=== PATIENT | male | born 1960 | race Two or more races ===

== ENCOUNTER 2017-07-14 01:33 | Inpatient (IN) | payer MEDICAID, OTHER ==
[~2017-07-14] VITALS: Ht 170.2 cm; Wt 56.6 kg
[2017-07-14 02:43] LABS: Basophils # (auto) 0.1 uL; Basophils % (auto) 0.7 % (0.0-2.0); Eosinophils # (auto) 0 uL; Eosinophils % (auto) 0.3 % (0.0-7.0); Hematocrit 26.6 % (41.0-53.0); Hemoglobin 8.6 g/dL (13.5-17.5); Lymphocytes # (auto) 1.5 uL; Lymphocytes % (auto) 19.7 % (10.0-50.0); Mean Corpuscular Hemoglobin 31.2 pg (28.0-32.0); Mean Corpuscular Hgb Conc. 32.3 g/dL (32.0-36.0); Mean Corpuscular Volume 96.5 fL (80.0-100.0); Monocytes # (auto) 0.3 uL; Monocytes % (auto) 3.5 % (0.0-12.0); Neutrophils # (auto) 5.7 uL; Neutrophils % (auto) 75.8 % (37.0-80.0); Nucleated Red Blood Cells % 0.1 %; Platelet Count (auto) 320 10^3/uL (140-450); Red Blood Cells 2.75 10^6/uL (4.5-5.90); Red Cell Distribution Width 18.2 % (11.8-14.3); White Blood Cell 7.5 10^3/uL (4.4-10.8)
[2017-07-14 02:46] LABS: Urine Bacteria NONE SEEN /hpf (None Seen); Urine Blood Negative /uL (Negative); Urine Mucus FEW (None Seen); Urine Specific Gravity 1.014 (1.001-1.035); Urine WBC 2 /hpf (0 - 3)
[2017-07-14 03:01] LABS: Alanine Aminotransferase 10 U/L (16-61); Albumin 2.4 g/dL (3.4-5.0); Anion Gap 10 (5-15); Aspartate Aminotransferase 23 U/L (15-37); BUN/Creatinine Ratio 14.3; Blood Urea Nitrogen 55 mg/dL (7-18); Calcium 10.4 mg/dL (8.5-10.1); Carbon Dioxide 18 mmol/L (21-32); Chloride 102 mmol/L (98-107); GFR African American 21 mL/min; GFR Non-African American 17 mL/min; Glucose 75 mg/dL (74-106); Magnesium 2.8 mg/dL (1.6-2.6); Sodium 130 mmol/L (136-145)
[2017-07-14 03:05] LABS: Alkaline Phosphatase 99 U/L (45-117); Bilirubin, Total 0.4 mg/dL (0.2-1.0)
[2017-07-14 03:24] LABS: Potassium 5.7 mmol/L (3.5-5.1)
[2017-07-14] MEDS ORDERED: InsuLIN REG 1unit/0.01ml Soln (100units/ml) IV ONE ×2 (04:00→04:15)
[2017-07-14] MEDS ORDERED: SODIUM BICARBONATE 8.4% INJ 50ML SYRINGE IV ONE (04:00)
[2017-07-14] MEDS ORDERED: CALCIUM GLUC 4.65meq/50ml D5AE 50 ML IV ONE (04:00)
[2017-07-14] MEDS ORDERED: SODIUM POLYSTYRENE SULF 15GM/60ML SUSP PO ONE (04:00)
[2017-07-14] MEDS ORDERED: DEXTROSE (50%) 50ML SYRG IV ONE (04:00)
[2017-07-14 04:17] LABS: Alcohol, Urine < 3.0 mg/dL (0-5); Amphetamine Screen, Urine NEGATIVE (NEGATIVE); Barbiturate Scree,Urine NEGATIVE (NEGATIVE); Benzodiazephine Screen, Urine NEGATIVE (NEGATIVE); Cannabinoid Screen, Urine NEGATIVE (NEGATIVE); Cocaine Screen, Urine NEGATIVE (NEGATIVE); Opiate Scree,Urine POSITIVE (NEGATIVE); Phencyclidine Screen, Urine NEGATIVE (NEGATIVE)
[2017-07-14] MEDS ORDERED: SODIUM CHLORIDE 0.9% 1,000 ML IV SCH (07:08)
[2017-07-14] MEDS ORDERED: NITROGLYCERIN 0.4 MG SL TAB SL PRN (07:15)
[2017-07-14] MEDS ORDERED: ACETAMINOPHEN 325 MG TAB PO PRN (07:15)
[2017-07-14] MEDS ORDERED: MORPHINE SULFATE 10 MG/ML INJ 1ML SDV IV PRN (07:15)
[2017-07-14] MEDS: PANTOPRAZOLE 40 MG TAB PO SCH (08:35)
[2017-07-14] MEDS: HEPARIN SODIUM (PORCINE) 5000 UNITS/ML 1ML VIAL SC SCH ×2 (08:35→22:42)
[2017-07-14] MEDS: ELVITEGRAVIR PO SCH ×2 (08:35→10:10)
[2017-07-14] MEDS: COBICISTAT PO SCH ×2 (08:35→10:10)
[2017-07-14] MEDS: EMTRICITABINE PO SCH ×2 (08:35→10:10)
[2017-07-14] MEDS: TENOFOVIR ALAFENAMIDE PO SCH ×2 (08:35→10:10)
[2017-07-14 08:47] VITALS: BP 111/71
[2017-07-14 09:16] VITALS: BP 123/51
[2017-07-14] MEDS ORDERED: SULFAMETHOX W/TRIMETH(800/160MG) DS TAB PO SCH (10:00)
[2017-07-14] MEDS: NYSTATIN (MOUTH-THROAT) 500,000 UNITS/5 ML SUSP MT SCH ×3 (11:47→22:42)
[2017-07-14] MEDS: SODIUM BICARBONATE 50ML VIAL 50 ML in D5W/SOD CHL 0.45% 1,000 ML IV SCH ×2 (11:47→22:00)
[2017-07-14 11:58] LABS: Protein, Urine 130.5 mg/dL (0.0-11.9)
[2017-07-14] MEDS ORDERED: SULF400T11 PO (14:26)
[2017-07-14] MEDS ORDERED: FLUC200T50 PO (14:26)
[2017-07-14] MEDS ORDERED: ETHA400T20 PO (14:26)
[2017-07-14] MEDS ORDERED: ELVI1TAB4 PO (14:28)
[2017-07-14 17:16] LABS: % Iron Saturation 33.6 % (20-55)
[2017-07-14] MEDS: HYDROcodone-ACET 5/325MG TAB PO PRN (20:44)
[2017-07-14 22:09] VITALS: BP 125/72
[2017-07-14] MEDS: ONDANSETRON HCL 4 MG/2 ML VIAL IV PRN (22:59)
[2017-07-15 05:06] LABS: RPR Non Reactive (Non Reactive)
[2017-07-15 06:01] VITALS: BP 132/84
[2017-07-15] MEDS: NYSTATIN (MOUTH-THROAT) 500,000 UNITS/5 ML SUSP MT SCH ×4 (06:25→22:43)
[2017-07-15 07:42] LABS: Basophils # (auto) 0 uL; Eosinophils # (auto) 0 uL; Hematocrit 24.4 % (41.0-53.0); Lymphocytes # (auto) 1.2 uL; Mean Corpuscular Hemoglobin 31.4 pg (28.0-32.0); Monocytes # (auto) 0.3 uL; Neutrophils # (auto) 3.1 uL; Red Blood Cells 2.56 10^6/uL (4.5-5.90)
[2017-07-15 07:44] LABS: Basophils % (auto) 0.6 % (0.0-2.0); Eosinophils % (auto) 0.3 % (0.0-7.0); Lymphocytes % (auto) 25.4 % (10.0-50.0); Mean Corpuscular Hgb Conc. 32.9 g/dL (32.0-36.0); Mean Corpuscular Volume 95.6 fL (80.0-100.0); Monocytes % (auto) 7.5 % (0.0-12.0); Neutrophils % (auto) 66.2 % (37.0-80.0); Platelet Count (auto) 302 10^3/uL (140-450); Red Cell Distribution Width 18.1 % (11.8-14.3); White Blood Cell 4.6 10^3/uL (4.4-10.8)
[2017-07-15 08:04] LABS: Alanine Aminotransferase 7 U/L (16-61); Albumin 2.1 g/dL (3.4-5.0); Alkaline Phosphatase 83 U/L (45-117); Anion Gap 10 (5-15); Aspartate Aminotransferase 14 U/L (15-37); BUN/Creatinine Ratio 15.2; Bilirubin, Total 0.2 mg/dL (0.2-1.0); Blood Urea Nitrogen 48 mg/dL (7-18); Calcium 9.3 mg/dL (8.5-10.1); Carbon Dioxide 24 mmol/L (21-32); Chloride 104 mmol/L (98-107); GFR African American 26 mL/min; GFR Non-African American 22 mL/min; Glucose 85 mg/dL (74-106); Potassium 4.3 mmol/L (3.5-5.1); Sodium 138 mmol/L (136-145); Total Protein 7.9 g/dL (6.4-8.2)
[2017-07-15] MEDS: SODIUM BICARBONATE 50ML VIAL 50 ML in D5W/SOD CHL 0.45% 1,000 ML IV SCH ×2 (08:30→19:24)
[2017-07-15 08:46] VITALS: BP 101/68
[2017-07-15] MEDS: PANTOPRAZOLE 40 MG TAB PO SCH (10:44)
[2017-07-15] MEDS: HEPARIN SODIUM (PORCINE) 5000 UNITS/ML 1ML VIAL SC SCH ×2 (10:47→22:45)
[2017-07-15] MEDS: EMTRICITABINE PO SCH (10:52)
[2017-07-15] MEDS: COBICISTAT PO SCH (10:52)
[2017-07-15] MEDS: TENOFOVIR ALAFENAMIDE PO SCH (10:52)
[2017-07-15] MEDS: ELVITEGRAVIR PO SCH (10:52)
[2017-07-15 13:12] VITALS: BP 94/60
[2017-07-15] MEDS ORDERED: EPOETIN ALFA 2,000 UNIT/1 ML VIAL IV ONE (16:45)
[2017-07-15 17:39] VITALS: BP 113/74
[2017-07-15] MEDS: BOOST PLUS 8 ounce PO SCH (18:07)
[2017-07-15 21:34] VITALS: BP 118/71
[2017-07-15] MEDS: TEMAZEPAM 15 MG CAP PO PRN (22:43)
[2017-07-16 04:41] VITALS: BP 112/75
[2017-07-16] MEDS: SODIUM BICARBONATE 50ML VIAL 50 ML in D5W/SOD CHL 0.45% 1,000 ML IV SCH ×2 (05:43→16:00)
[2017-07-16] MEDS: NYSTATIN (MOUTH-THROAT) 500,000 UNITS/5 ML SUSP MT SCH ×4 (06:58→22:04)
[2017-07-16 07:06] LABS: BUN/Creatinine Ratio 14.6; Potassium 3.8 mmol/L (3.5-5.1)
[2017-07-16 09:00] VITALS: BP 114/74
[2017-07-16] MEDS: EMTRICITABINE PO SCH (10:50)
[2017-07-16] MEDS: COBICISTAT PO SCH (10:50)
[2017-07-16] MEDS: PANTOPRAZOLE 40 MG TAB PO SCH (10:50)
[2017-07-16] MEDS: TENOFOVIR ALAFENAMIDE PO SCH (10:50)
[2017-07-16] MEDS: ELVITEGRAVIR PO SCH (10:50)
[2017-07-16] MEDS: HEPARIN SODIUM (PORCINE) 5000 UNITS/ML 1ML VIAL SC SCH ×2 (10:56→22:05)
[2017-07-16] MEDS: BOOST PLUS 8 ounce PO SCH ×3 (11:57→19:01)
[2017-07-16 13:00] VITALS: BP 116/75
[2017-07-16 17:00] VITALS: BP 123/76
[2017-07-16] MEDS: HYDROcodone-ACET 5/325MG TAB PO PRN (17:06)
[2017-07-16 22:00] VITALS: BP 119/70
[2017-07-17] MEDS: SODIUM BICARBONATE 50ML VIAL 50 ML in D5W/SOD CHL 0.45% 1,000 ML IV SCH (02:30)
[2017-07-17 05:00] VITALS: BP 130/75
[2017-07-17] MEDS: ONDANSETRON HCL 4 MG/2 ML VIAL IV PRN (05:23)
[2017-07-17] MEDS: NYSTATIN (MOUTH-THROAT) 500,000 UNITS/5 ML SUSP MT SCH ×4 (05:23→21:36)
[2017-07-17 06:08] LABS: Hemoglobin 7.5 g/dL (13.5-17.5)
[2017-07-17 06:10] LABS: Mean Corpuscular Hemoglobin 31.2 pg (28.0-32.0); Mean Corpuscular Hgb Conc. 32.6 g/dL (32.0-36.0); Mean Corpuscular Volume 95.6 fL (80.0-100.0); Platelet Count (auto) 243 10^3/uL (140-450); Red Blood Cells 2.41 10^6/uL (4.5-5.90); Red Cell Distribution Width 18.2 % (11.8-14.3); White Blood Cell 3.3 10^3/uL (4.4-10.8)
[2017-07-17 06:16] LABS: Basophils % (manual) 0 (0.0-2.0); Blast Cells 0; Promyelocytes % 0; Reactive Lymphocytes 0
[2017-07-17 06:30] LABS: BUN/Creatinine Ratio 14.9; Potassium 3.7 mmol/L (3.5-5.1)
[2017-07-17 06:37] LABS: Band Neutrophils % (manual) 1; Eosinophils % (manual) 1 (0-7); Lymphocytes % (manual) 49 (10.0-50.0); Metamyelocytes % 1; Monocytes % (manual) 12 (0-12); Myelocytes % 1
[2017-07-17 09:10] VITALS: BP 118/75
[2017-07-17] MEDS: HEPARIN SODIUM (PORCINE) 5000 UNITS/ML 1ML VIAL SC SCH ×2 (10:00→21:36)
[2017-07-17 10:19] LABS: Folate (Folic Acid) 6.89 ng/mL (5.38-24)
[2017-07-17] MEDS: EMTRICITABINE PO SCH (10:24)
[2017-07-17] MEDS: BOOST PLUS 8 ounce PO SCH ×3 (10:24→18:00)
[2017-07-17] MEDS: PANTOPRAZOLE 40 MG TAB PO SCH (10:24)
[2017-07-17] MEDS: COBICISTAT PO SCH (10:24)
[2017-07-17] MEDS: TENOFOVIR ALAFENAMIDE PO SCH (10:24)
[2017-07-17] MEDS: ELVITEGRAVIR PO SCH (10:24)
[2017-07-17 10:35] LABS: Hepatitis B Surface Antigen Negative (Negative)
[2017-07-17 11:04] LABS: Hepatitis C Antibody Negative (Negative)
[2017-07-17] MEDS ORDERED: LORazepam 2MG/ML-1ML VIAL IV ONE (11:30)
[2017-07-17 12:22] VITALS: BP 116/74
[2017-07-17 12:23] VITALS: BP_SYST 116; BP_SYST 126; BP_DIAS 78; BP_DIAS 79
[2017-07-17] MEDS ORDERED: EPOETIN ALFA 4,000 UNIT/ML VL IV ONE (12:30)
[2017-07-17] MEDS: TEMAZEPAM 15 MG CAP PO PRN (21:36)
[2017-07-17 22:00] VITALS: BP 123/78
[2017-07-18] VITALS (10 sets, daily range): BP systolic 99–140; BP diastolic 63–84
[2017-07-18] MEDS: NYSTATIN (MOUTH-THROAT) 500,000 UNITS/5 ML SUSP MT SCH ×4 (05:33→21:54)
[2017-07-18] MEDS: BOOST PLUS 8 ounce PO SCH ×3 (08:00→18:00)
[2017-07-18] MEDS: COBICISTAT PO SCH (10:31)
[2017-07-18] MEDS: TENOFOVIR ALAFENAMIDE PO SCH (10:31)
[2017-07-18] MEDS: PANTOPRAZOLE 40 MG TAB PO SCH (10:31)
[2017-07-18] MEDS: ELVITEGRAVIR PO SCH (10:31)
[2017-07-18] MEDS: EMTRICITABINE PO SCH (10:31)
[2017-07-18 10:43] LABS: Basophils # (auto) 0 uL; Basophils % (auto) 0.6 % (0.0-2.0); Eosinophils # (auto) 0 uL; Eosinophils % (auto) 0.4 % (0.0-7.0); Hematocrit 25.6 % (41.0-53.0); Hemoglobin 8.2 g/dL (13.5-17.5); Lymphocytes # (auto) 1.6 uL; Lymphocytes % (auto) 50.5 % (10.0-50.0); Mean Corpuscular Hemoglobin 30.8 pg (28.0-32.0); Mean Corpuscular Hgb Conc. 32.1 g/dL (32.0-36.0); Mean Corpuscular Volume 96.1 fL (80.0-100.0); Monocytes # (auto) 0.2 uL; Monocytes % (auto) 6.9 % (0.0-12.0); Neutrophils # (auto) 1.3 uL; Neutrophils % (auto) 41.6 % (37.0-80.0); Nucleated Red Blood Cells % 0.2 %; Platelet Count (auto) 259 10^3/uL (140-450); Red Blood Cells 2.66 10^6/uL (4.5-5.90); Red Cell Distribution Width 18.5 % (11.8-14.3); White Blood Cell 3.1 10^3/uL (4.4-10.8)
[2017-07-18] MEDS: ONDANSETRON HCL 4 MG/2 ML VIAL IV PRN (15:56)
[2017-07-18] MEDS: HYDROcodone-ACET 5/325MG TAB PO PRN (22:01)
[2017-07-19 00:55] VITALS: BP 133/79
[2017-07-19 01:45] VITALS: BP 142/87
[2017-07-19 03:17] VITALS: BP 123/75
[2017-07-19 04:47] VITALS: BP 138/79
[2017-07-19] MEDS: NYSTATIN (MOUTH-THROAT) 500,000 UNITS/5 ML SUSP MT SCH (05:34)
[2017-07-19 08:36] VITALS: BP 125/75
[2017-07-19 09:12] LABS: Hematocrit 31.9 % (41.0-53.0); Hemoglobin 10.5 g/dL (13.5-17.5); Mean Corpuscular Hemoglobin 30.6 pg (28.0-32.0); Mean Corpuscular Volume 92.7 fL (80.0-100.0); Platelet Count (auto) 226 10^3/uL (140-450); Red Blood Cells 3.44 10^6/uL (4.5-5.90); Red Cell Distribution Width 18.9 % (11.8-14.3); White Blood Cell 3.4 10^3/uL (4.4-10.8)
[2017-07-19 09:21] LABS: Band Neutrophils % (manual) 0; Basophils % (manual) 0 (0.0-2.0); Blast Cells 0; Metamyelocytes % 0; Myelocytes % 0; Promyelocytes % 0; Reactive Lymphocytes 0
[2017-07-19 14:05] LABS: Eosinophils % (manual) 2 (0-7); Lymphocytes % (manual) 33 (10.0-50.0); Monocytes % (manual) 9 (0-12)
== END 2017-07-19 11:48 | disposition left against medical advice (07) | DRG 469 ==
LOC: ER 01:33 → EDBD 01:33 → TELE 01:34 → EDBD 01:34 → TELE-CENTR 13:25
PROVIDERS: ADMIT Nurse Practitioner; ATTEND Internal Medicine
PROC: 30233N1 Transfusion of Nonautologous Red Blood Cells into Peripheral Vein, Percutaneous Approach (ICD-10-PCS; principal; 2017-07-18)
DX: N17.0 Acute kidney failure with tubular necrosis (principal); B20 Human immunodeficiency virus [HIV] disease; E87.2 Acidosis; E44.0 Moderate protein-calorie malnutrition; G45.9 Transient cerebral ischemic attack, unspecified; R55 Syncope and collapse; E87.5 Hyperkalemia; Z68.1 Body mass index [BMI] 19.9 or less, adult; R56.9 Unspecified convulsions; D63.8 Anemia in other chronic diseases classified elsewhere; E16.2 Hypoglycemia, unspecified; E83.52 Hypercalcemia; E86.0 Dehydration; N40.0 Benign prostatic hyperplasia without lower urinary tract symptoms; Z53.21 Procedure and treatment not carried out due to patient leaving prior to being seen by health care provider; N18.9 Chronic kidney disease, unspecified
CPT/HCPCS: 36415; 70450; 70551; 71045; 72125; 74176; 76775; 80048; 80053; 80307; 81001; 82570; 82607; 82746; 83540; 83550; 83690; 83735; 84132; 84156; 84300; 84443; 84484; 85007; 85025; 85027; 86160; 86592; 86803; 86850; 86900; 86901; 86906; 86922; 87340; 93005; 93306; 93886; 95819; 96361; 96365; 96375; J0610; J2405; Q4081

== ENCOUNTER 2017-08-20 21:02 | Inpatient (IN) | payer MEDICAID ==
[~2017-08-20] VITALS: Ht 175.3 cm; Wt 58.7 kg
[~2017-08-20 21:02] MED LIST: ELVI1TAB4 PO; ETHA400T20 PO; FLUC200T50 PO; SULF400T11 PO
[2017-08-20 22:09] LABS: Hemoglobin 8.3 g/dL (13.5-17.5)
[2017-08-20 22:11] LABS: Hematocrit 25.6 % (41.0-53.0); Mean Corpuscular Hemoglobin 31.9 pg (28.0-32.0); Mean Corpuscular Hgb Conc. 32.4 g/dL (32.0-36.0); Mean Corpuscular Volume 98.5 fL (80.0-100.0); Platelet Count (auto) 355 10^3/uL (140-450); White Blood Cell 18.1 10^3/uL (4.4-10.8)
[2017-08-20 22:19] LABS: Red Cell Distribution Width 21.2 % (11.8-14.3)
[2017-08-20 22:20] LABS: Basophils % (manual) 0 (0.0-2.0); Blast Cells 0; Eosinophils % (manual) 0 (0-7); Metamyelocytes % 0; Myelocytes % 0; Promyelocytes % 0; Reactive Lymphocytes 0
[2017-08-20 22:31] LABS: Alanine Aminotransferase 22 U/L (16-61); Albumin 2.6 g/dL (3.4-5.0); Alkaline Phosphatase 150 U/L (45-117); Anion Gap 11 (5-15); Aspartate Aminotransferase 40 U/L (15-37); BUN/Creatinine Ratio 15.3; Bilirubin, Total 0.5 mg/dL (0.2-1.0); Blood Urea Nitrogen 42 mg/dL (7-18); Calcium 9.2 mg/dL (8.5-10.1); Carbon Dioxide 19 mmol/L (21-32); Chloride 100 mmol/L (98-107); GFR African American 31 mL/min; GFR Non-African American 26 mL/min; Glucose 105 mg/dL (74-106); Magnesium 2.6 mg/dL (1.6-2.6); Potassium 4.1 mmol/L (3.5-5.1); Sodium 130 mmol/L (136-145); Total Protein 10.2 g/dL (6.4-8.2)
[2017-08-20 22:44] LABS: INR 1.1 (0.9-1.15); Partial Thromboplastin Time 38.7 sec (22.64-33.71)
[2017-08-20 22:53] LABS: Band Neutrophils % (manual) 3; Lymphocytes % (manual) 23 (10.0-50.0); Monocytes % (manual) 9 (0-12)
[2017-08-20] MEDS ORDERED: SODIUM CHLORIDE 0.9% 1,000 ML IV ONE (23:00)
[2017-08-20] MEDS ORDERED: IBUPROFEN 800 MG TAB PO ONE (23:00)
[2017-08-20] MEDS ORDERED: ACETAMINOPHEN 325 MG TAB PO ONE (23:00)
[2017-08-20] MEDS ORDERED: cefTRIAXone 1GM/10ml IVPUSH 10 ML IV ONE (23:15)
[2017-08-20 23:35] LABS: Lactic Acid w/Reflex 3.4 mmol/L (0.4-2.0)
[2017-08-21] MEDS ORDERED: SODIUM CHLORIDE 0.9% 1,000 ML IV ONE ×2 (00:45→06:30)
[2017-08-21] MEDS ORDERED: ACETAMINOPHEN 500 MG TAB PO PRN (06:30)
[2017-08-21 09:29] VITALS: BP 99/71
[2017-08-21 09:51] LABS: Hemoglobin 7.8 g/dL (13.5-17.5)
[2017-08-21 09:53] LABS: Mean Corpuscular Hemoglobin 31.8 pg (28.0-32.0); Mean Corpuscular Hgb Conc. 32.5 g/dL (32.0-36.0); Mean Corpuscular Volume 97.8 fL (80.0-100.0); Platelet Count (auto) 292 10^3/uL (140-450); Red Blood Cells 2.45 10^6/uL (4.5-5.90); White Blood Cell 9.2 10^3/uL (4.4-10.8)
[2017-08-21 09:59] LABS: Red Cell Distribution Width 21.6 % (11.8-14.3)
[2017-08-21 10:02] LABS: Calcium 8.5 mg/dL (8.5-10.1); Potassium 4.4 mmol/L (3.5-5.1)
[2017-08-21 10:05] LABS: Band Neutrophils % (manual) 0; Basophils % (manual) 0 (0.0-2.0); Blast Cells 0; Eosinophils % (manual) 0 (0-7); Metamyelocytes % 0; Myelocytes % 0; Promyelocytes % 0; Reactive Lymphocytes 0
[2017-08-21] MEDS: FLUCONAZOLE 200MG/100ML 100 ML IV SCH (10:24)
[2017-08-21 10:40] LABS: Lymphocytes % (manual) 18 (10.0-50.0); Monocytes % (manual) 2 (0-12)
[2017-08-21 10:59] LABS: Urine Bacteria NONE SEEN /hpf (None Seen); Urine Blood Negative /uL (Negative); Urine Specific Gravity 1.011 (1.001-1.035); Urine WBC 5 /hpf (0 - 3)
[2017-08-21 11:00] LABS: Alcohol, Urine < 3.0 mg/dL (0-5); Amphetamine Screen, Urine NEGATIVE (NEGATIVE); Barbiturate Scree,Urine NEGATIVE (NEGATIVE); Benzodiazephine Screen, Urine NEGATIVE (NEGATIVE); Cannabinoid Screen, Urine NEGATIVE (NEGATIVE); Cocaine Screen, Urine NEGATIVE (NEGATIVE); Opiate Scree,Urine NEGATIVE (NEGATIVE); Phencyclidine Screen, Urine NEGATIVE (NEGATIVE)
[2017-08-21] MEDS: ONDANSETRON HCL 4 MG/2 ML VIAL IV PRN ×2 (12:17→21:07)
[2017-08-21] MEDS ORDERED: cefTRIAXone 1GM/10ml IVPUSH 10 ML IV ONE (15:45)
[2017-08-21] MEDS: SODIUM CHLORIDE 0.9% 1,000 ML IV SCH (15:59)
[2017-08-21 20:00] VITALS: BP 88/55
[2017-08-21 22:00] VITALS: BP 86/53
[2017-08-21] MEDS: metroNIDAZOLE 500MG/100ML 100 ML IV SCH (22:20)
[2017-08-22] MEDS: HYDROcodone-ACET 5/325MG TAB PO PRN (02:48)
[2017-08-22 05:00] VITALS: BP 94/61
[2017-08-22] MEDS: SODIUM CHLORIDE 0.9% 1,000 ML IV SCH ×2 (05:41→15:06)
[2017-08-22] MEDS: metroNIDAZOLE 500MG/100ML 100 ML IV SCH ×3 (05:53→19:55)
[2017-08-22 06:56] LABS: Hematocrit 20.8 % (41.0-53.0)
[2017-08-22 06:59] LABS: Mean Corpuscular Hemoglobin 32.6 pg (28.0-32.0); Mean Corpuscular Hgb Conc. 33.2 g/dL (32.0-36.0); Platelet Count (auto) 272 10^3/uL (140-450); Red Blood Cells 2.12 10^6/uL (4.5-5.90); White Blood Cell 9.9 10^3/uL (4.4-10.8)
[2017-08-22 07:06] LABS: Potassium 4.4 mmol/L (3.5-5.1)
[2017-08-22 07:19] LABS: BUN/Creatinine Ratio 17.5; Calcium 8.9 mg/dL (8.5-10.1)
[2017-08-22 07:50] LABS: Hemoglobin 6.9 g/dL (13.5-17.5)
[2017-08-22 07:52] LABS: Band Neutrophils % (manual) 0; Basophils % (manual) 0 (0.0-2.0); Blast Cells 0; Eosinophils % (manual) 0 (0-7); Metamyelocytes % 0; Myelocytes % 0; Promyelocytes % 0; Reactive Lymphocytes 0
[2017-08-22 08:00] VITALS: BP 89/61
[2017-08-22 09:00] VITALS: BP 90/58
[2017-08-22] MEDS: cefTRIAXone 1GM/10ml IVPUSH 10 ML IV SCH (10:04)
[2017-08-22] MEDS: FLUCONAZOLE 200MG/100ML 100 ML IV SCH (10:05)
[2017-08-22 11:14] LABS: Lymphocytes % (manual) 22 (10.0-50.0); Monocytes % (manual) 8 (0-12)
[2017-08-22] MEDS ORDERED: METOCLOPRAMIDE HCL 5MG/ml INJ 2ml VIAL IV PRN (12:00)
[2017-08-22 12:26] VITALS: BP 101/63
[2017-08-22 16:30] VITALS: BP 100/63
[2017-08-22 22:00] VITALS: BP 90/57
[2017-08-23] MEDS: SODIUM CHLORIDE 0.9% 1,000 ML IV SCH ×2 (04:42→20:27)
[2017-08-23 05:00] VITALS: BP 87/51
[2017-08-23] MEDS: metroNIDAZOLE 500MG/100ML 100 ML IV SCH ×3 (05:36→18:31)
[2017-08-23 05:43] LABS: Hemoglobin 7.5 g/dL (13.5-17.5); White Blood Cell 11.6 10^3/uL (4.4-10.8)
[2017-08-23 05:47] LABS: Hematocrit 23.3 % (41.0-53.0); Mean Corpuscular Hgb Conc. 32.2 g/dL (32.0-36.0); Mean Corpuscular Volume 99.2 fL (80.0-100.0); Platelet Count (auto) 324 10^3/uL (140-450); Red Blood Cells 2.35 10^6/uL (4.5-5.90)
[2017-08-23 05:50] LABS: Red Cell Distribution Width 21.5 % (11.8-14.3)
[2017-08-23 05:52] LABS: Basophils % (manual) 0 (0.0-2.0); Blast Cells 0; Eosinophils % (manual) 0 (0-7); Metamyelocytes % 0; Myelocytes % 0; Promyelocytes % 0; Reactive Lymphocytes 0
[2017-08-23 06:04] LABS: BUN/Creatinine Ratio 16.2; Calcium 8.8 mg/dL (8.5-10.1); Potassium 4.3 mmol/L (3.5-5.1)
[2017-08-23 06:41] LABS: Band Neutrophils % (manual) 1; Lymphocytes % (manual) 33 (10.0-50.0); Monocytes % (manual) 7 (0-12)
[2017-08-23 08:00] VITALS: BP 99/62
[2017-08-23 09:00] VITALS: BP 99/62
[2017-08-23] MEDS: FLUCONAZOLE 200MG/100ML 100 ML IV SCH (09:55)
[2017-08-23] MEDS: cefTRIAXone 1GM/10ml IVPUSH 10 ML IV SCH (09:55)
[2017-08-23] MEDS ORDERED: SULFAMETHOX W/TRIMETH(800/160MG) DS TAB PO ONE (11:30)
[2017-08-23 13:00] VITALS: BP 108/68
[2017-08-23 17:09] VITALS: BP 108/65
[2017-08-23] MEDS: HYDROcodone-ACET 5/325MG TAB PO PRN (20:26)
[2017-08-23 22:00] VITALS: BP 122/69
[2017-08-24] MEDS: HYDROcodone-ACET 5/325MG TAB PO PRN (04:17)
[2017-08-24] MEDS: metroNIDAZOLE 500MG/100ML 100 ML IV SCH ×3 (04:37→21:36)
[2017-08-24 05:00] VITALS: BP 125/59
[2017-08-24 06:19] LABS: Hematocrit 25.3 % (41.0-53.0); Mean Corpuscular Hemoglobin 32.1 pg (28.0-32.0); Mean Corpuscular Hgb Conc. 31.5 g/dL (32.0-36.0); Mean Corpuscular Volume 101.9 fL (80.0-100.0); Platelet Count (auto) 354 10^3/uL (140-450); Red Blood Cells 2.48 10^6/uL (4.5-5.90); White Blood Cell 13.1 10^3/uL (4.4-10.8)
[2017-08-24 06:30] LABS: Red Cell Distribution Width 21.5 % (11.8-14.3)
[2017-08-24 06:31] LABS: Basophils % (manual) 0 (0.0-2.0); Blast Cells 0; Eosinophils % (manual) 0 (0-7); Metamyelocytes % 0; Myelocytes % 0; Promyelocytes % 0; Reactive Lymphocytes 0
[2017-08-24 06:35] LABS: BUN/Creatinine Ratio 14.6; Calcium 8.8 mg/dL (8.5-10.1); Magnesium 2.4 mg/dL (1.6-2.6); Potassium 4.1 mmol/L (3.5-5.1)
[2017-08-24 07:01] LABS: Band Neutrophils % (manual) 1; Lymphocytes % (manual) 17 (10.0-50.0); Monocytes % (manual) 9 (0-12)
[2017-08-24 09:00] VITALS: BP 103/66
[2017-08-24] MEDS: cefTRIAXone 1GM/10ml IVPUSH 10 ML IV SCH (10:30)
[2017-08-24] MEDS: SULFAMETHOX W/TRIMETH(800/160MG) DS TAB PO SCH (10:30)
[2017-08-24] MEDS: FLUCONAZOLE 200MG/100ML 100 ML IV SCH (10:30)
[2017-08-24 12:41] LABS: Urine Bacteria NONE SEEN /hpf (None Seen); Urine Blood Negative /uL (Negative); Urine Hyaline Cast FEW /lpf (0 - 2); Urine Mucus FEW (None Seen); Urine WBC 1 /hpf (0 - 3)
[2017-08-24] MEDS: SODIUM CHLORIDE 0.9% 1,000 ML IV SCH (12:48)
[2017-08-24 13:00] VITALS: BP 107/63
[2017-08-24 17:22] VITALS: BP 91/61
[2017-08-24 22:00] VITALS: BP 104/69
[2017-08-25 05:00] VITALS: BP 100/59
[2017-08-25] MEDS: metroNIDAZOLE 500MG/100ML 100 ML IV SCH ×3 (05:39→21:56)
[2017-08-25 06:36] LABS: Hematocrit 25.2 % (41.0-53.0); Hemoglobin 8.2 g/dL (13.5-17.5); Mean Corpuscular Hemoglobin 32.2 pg (28.0-32.0); Mean Corpuscular Hgb Conc. 32.5 g/dL (32.0-36.0); Mean Corpuscular Volume 99.2 fL (80.0-100.0); Platelet Count (auto) 378 10^3/uL (140-450); Red Blood Cells 2.54 10^6/uL (4.5-5.90); White Blood Cell 10.8 10^3/uL (4.4-10.8)
[2017-08-25] MEDS: SODIUM CHLORIDE 0.9% 1,000 ML IV SCH ×2 (06:39→22:23)
[2017-08-25 06:42] LABS: Red Cell Distribution Width 21.6 % (11.8-14.3)
[2017-08-25 06:46] LABS: Band Neutrophils % (manual) 0; Basophils % (manual) 0 (0.0-2.0); Blast Cells 0; Metamyelocytes % 0; Myelocytes % 0; Promyelocytes % 0; Reactive Lymphocytes 0
[2017-08-25 06:47] LABS: BUN/Creatinine Ratio 16.4
[2017-08-25 06:56] LABS: Eosinophils % (manual) 2 (0-7); Lymphocytes % (manual) 24 (10.0-50.0); Monocytes % (manual) 14 (0-12)
[2017-08-25 09:00] VITALS: BP 121/73
[2017-08-25] MEDS: FLUCONAZOLE 200MG/100ML 100 ML IV SCH (09:45)
[2017-08-25] MEDS: SULFAMETHOX W/TRIMETH(800/160MG) DS TAB PO SCH (09:45)
[2017-08-25] MEDS: cefTRIAXone 1GM/10ml IVPUSH 10 ML IV SCH (09:45)
[2017-08-25 17:00] VITALS: BP 99/64
[2017-08-25] MEDS: Nutren Pulmonary 250ml Bottle PO SCH (18:34)
[2017-08-25 22:00] VITALS: BP 102/69
[2017-08-25] MEDS: HYDROcodone-ACET 5/325MG TAB PO PRN (22:22)
[2017-08-26 05:00] VITALS: BP 110/71
[2017-08-26] MEDS: metroNIDAZOLE 500MG/100ML 100 ML IV SCH ×2 (05:03→14:00)
[2017-08-26 05:37] LABS: Hemoglobin 7.9 g/dL (13.5-17.5)
[2017-08-26 05:40] LABS: Mean Corpuscular Hemoglobin 32.7 pg (28.0-32.0); Mean Corpuscular Volume 99.1 fL (80.0-100.0); Platelet Count (auto) 442 10^3/uL (140-450); Red Blood Cells 2.42 10^6/uL (4.5-5.90); White Blood Cell 8.6 10^3/uL (4.4-10.8)
[2017-08-26 05:50] LABS: Red Cell Distribution Width 21.6 % (11.8-14.3)
[2017-08-26 05:51] LABS: BUN/Creatinine Ratio 19.3; Calcium 8.8 mg/dL (8.5-10.1); Potassium 4.6 mmol/L (3.5-5.1)
[2017-08-26 05:52] LABS: Band Neutrophils % (manual) 0; Basophils % (manual) 0 (0.0-2.0); Blast Cells 0; Metamyelocytes % 0; Myelocytes % 0; Promyelocytes % 0
[2017-08-26 06:56] LABS: Eosinophils % (manual) 1 (0-7); Lymphocytes % (manual) 28 (10.0-50.0); Monocytes % (manual) 7 (0-12); Reactive Lymphocytes 2
[2017-08-26 08:00] VITALS: BP 112/73
[2017-08-26] MEDS: cefTRIAXone 1GM/10ml IVPUSH 10 ML IV SCH (09:05)
[2017-08-26] MEDS: SULFAMETHOX W/TRIMETH(800/160MG) DS TAB PO SCH (09:05)
[2017-08-26] MEDS: Nutren Pulmonary 250ml Bottle PO SCH (09:05)
[2017-08-26] MEDS: FLUCONAZOLE 200MG/100ML 100 ML IV SCH (09:11)
[2017-08-26 12:00] VITALS: BP 97/70
[2017-08-26 12:13] VITALS: BP 112/73
== END 2017-08-26 13:50 | disposition home or self-care (01) | DRG 892 ==
LOC: ER 21:02 → TELE 21:03 → TELE-WESTW 08-21 18:19
PROVIDERS: ADMIT Nurse Practitioner Family; ATTEND Internal Medicine
DX: B20 Human immunodeficiency virus [HIV] disease (principal); A41.9 Sepsis, unspecified organism; N17.0 Acute kidney failure with tubular necrosis; E44.0 Moderate protein-calorie malnutrition; D63.8 Anemia in other chronic diseases classified elsewhere; J20.9 Acute bronchitis, unspecified; B37.0 Candidal stomatitis; K80.20 Calculus of gallbladder without cholecystitis without obstruction; N18.9 Chronic kidney disease, unspecified; Z68.1 Body mass index [BMI] 19.9 or less, adult; Z90.49 Acquired absence of other specified parts of digestive tract
CPT/HCPCS: 36415; 71045; 74176; 80048; 80053; 80307; 81001; 83605; 83615; 83735; 83880; 84484; 85007; 85014; 85018; 85027; 85610; 85730; 86355; 86359; 86360; 86850; 86900; 86901; 87040; 87086; 87804; 93005; 96361; 96365; 96375; J1450; J2405; J3490

== ENCOUNTER 2017-09-10 20:46 | Inpatient (IN) | payer MEDICAID ==
[~2017-09-10] VITALS: Ht 167.6 cm; Wt 57.8 kg
[2017-09-10 21:41] LABS: Basophils % (auto) 0.5 % (0.0-2.0); Eosinophils # (auto) 0.1 uL; Lymphocytes # (auto) 3.3 uL; Monocytes # (auto) 0.7 uL; Neutrophils # (auto) 5.6 uL; Neutrophils % (auto) 57.9 % (37.0-80.0)
[2017-09-10 21:43] LABS: Basophils # (auto) 0 uL; Eosinophils % (auto) 0.8 % (0.0-7.0); Hematocrit 24.9 % (41.0-53.0); Hemoglobin 8.1 g/dL (13.5-17.5); Lymphocytes % (auto) 33.9 % (10.0-50.0); Mean Corpuscular Hemoglobin 32.7 pg (28.0-32.0); Mean Corpuscular Hgb Conc. 32.6 g/dL (32.0-36.0); Mean Corpuscular Volume 100.2 fL (80.0-100.0); Monocytes % (auto) 6.9 % (0.0-12.0); Platelet Count (auto) 349 10^3/uL (140-450); Red Blood Cells 2.49 10^6/uL (4.5-5.90); Red Cell Distribution Width 18.8 % (11.8-14.3); White Blood Cell 9.7 10^3/uL (4.4-10.8)
[2017-09-10 21:54] LABS: INR 1.05 (0.9-1.15); Partial Thromboplastin Time 34.5 sec (22.64-33.71); Prothrombin Time 11.5 sec (9.37-12.3)
[2017-09-10 21:55] LABS: Albumin 2.6 g/dL (3.4-5.0); BUN/Creatinine Ratio 13.1; Bilirubin, Total 0.3 mg/dL (0.2-1.0); Calcium 9.3 mg/dL (8.5-10.1); Potassium 4.7 mmol/L (3.5-5.1); Total Protein 9.4 g/dL (6.4-8.2)
[2017-09-10] MEDS ORDERED: MORPHINE SULFATE 4 MG/ML SYR/VIAL IV ONE (22:15)
[2017-09-10] MEDS ORDERED: SODIUM CHLORIDE 0.9% 1,000 ML IV ONE ×2 (22:15)
[2017-09-10] MEDS ORDERED: ONDANSETRON HCL 4 MG/2 ML VIAL IV ONE (22:15)
[2017-09-11] VITALS (9 sets, daily range): BP systolic 90–111; BP diastolic 60–73
[2017-09-11] MEDS ORDERED: metroNIDAZOLE 500 MG TAB PO ONE (02:45)
[2017-09-11] MEDS ORDERED: cefTRIAXone 1GM/10ml IVPUSH 10 ML IV ONE (02:45)
[2017-09-11] MEDS ORDERED: HYDROcodone-ACET 5/325MG TAB PO PRN (03:00)
[2017-09-11] MEDS ORDERED: ACETAMINOPHEN 500 MG TAB PO PRN (03:00)
[2017-09-11] MEDS ORDERED: AZIT250T8 PO (03:51)
[2017-09-11 04:26] LABS: Red Blood Cells 2.08 10^6/uL (4.5-5.90); White Blood Cell 7.5 10^3/uL (4.4-10.8)
[2017-09-11 04:29] LABS: Hematocrit 20.9 % (41.0-53.0); Mean Corpuscular Hgb Conc. 32.8 g/dL (32.0-36.0); Mean Corpuscular Volume 100.5 fL (80.0-100.0); Platelet Count (auto) 295 10^3/uL (140-450)
[2017-09-11 04:44] LABS: Hemoglobin 6.9 g/dL (13.5-17.5)
[2017-09-11 04:47] LABS: Band Neutrophils % (manual) 0; Basophils % (manual) 0 (0.0-2.0); Blast Cells 0; Metamyelocytes % 0; Myelocytes % 0; Promyelocytes % 0; Reactive Lymphocytes 0
[2017-09-11 04:51] LABS: BUN/Creatinine Ratio 15.6; Calcium 8.3 mg/dL (8.5-10.1); Potassium 4.6 mmol/L (3.5-5.1)
[2017-09-11 05:14] LABS: Eosinophils % (manual) 1 (0-7); Lymphocytes % (manual) 46 (10.0-50.0); Monocytes % (manual) 3 (0-12)
[2017-09-11 05:24] LABS: Urine Bacteria FEW /hpf (None Seen); Urine Blood Negative /uL (Negative); Urine WBC 6 /hpf (0 - 3)
[2017-09-11] MEDS: metroNIDAZOLE 500MG/100ML 100 ML IV SCH ×3 (06:55→21:11)
[2017-09-11] MEDS: ONDANSETRON HCL 4 MG/2 ML VIAL IV PRN ×2 (07:13→19:50)
[2017-09-11] MEDS: PANTOPRAZOLE 40 MG/10 ML VIAL IV SCH (09:50)
[2017-09-11] MEDS: cefTRIAXone 1GM/10ml IVPUSH 10 ML IV SCH (09:50)
[2017-09-11] MEDS: FLUCONAZOLE 100 MG TAB PO SCH (09:50)
[2017-09-11 12:05] LABS: Hematocrit 21.9 % (41.0-53.0)
[2017-09-11] MEDS ORDERED: AZIT250T7 PO (12:44)
[2017-09-11] MEDS ORDERED: SULF400T11 PO (12:44)
[2017-09-11] MEDS ORDERED: CLAR500T PO (12:44)
[2017-09-11] MEDS ORDERED: PANT40T PO (12:44)
[2017-09-11] MEDS: BOOST PLUS 8 ounce PO SCH ×2 (13:17→18:03)
[2017-09-11 22:00] LABS: Hemoglobin 9.1 g/dL (13.5-17.5)
[2017-09-12 05:00] VITALS: BP 114/71
[2017-09-12] MEDS: metroNIDAZOLE 500MG/100ML 100 ML IV SCH ×2 (05:21→14:40)
[2017-09-12 05:52] LABS: Basophils # (auto) 0.1 uL; Eosinophils # (auto) 0.1 uL; Eosinophils % (auto) 1.8 % (0.0-7.0); Hematocrit 28.4 % (41.0-53.0); Hemoglobin 9.3 g/dL (13.5-17.5); Lymphocytes # (auto) 2.6 uL; Lymphocytes % (auto) 37.5 % (10.0-50.0); Mean Corpuscular Hemoglobin 31.8 pg (28.0-32.0); Mean Corpuscular Hgb Conc. 32.7 g/dL (32.0-36.0); Monocytes # (auto) 0.6 uL; Neutrophils # (auto) 3.5 uL; Neutrophils % (auto) 50.7 % (37.0-80.0); Nucleated Red Blood Cells % 0.2 %; Platelet Count (auto) 309 10^3/uL (140-450); Red Blood Cells 2.93 10^6/uL (4.5-5.90)
[2017-09-12 06:20] LABS: Red Cell Distribution Width 20.4 % (11.8-14.3)
[2017-09-12 07:04] LABS: Albumin 2.3 g/dL (3.4-5.0); BUN/Creatinine Ratio 14.5; Bilirubin, Total 0.4 mg/dL (0.2-1.0); Calcium 9.1 mg/dL (8.5-10.1); Potassium 4.3 mmol/L (3.5-5.1); Total Protein 8.3 g/dL (6.4-8.2)
[2017-09-12 08:43] VITALS: BP 120/71
[2017-09-12] MEDS: BOOST PLUS 8 ounce PO SCH ×2 (09:39→13:17)
[2017-09-12] MEDS: FLUCONAZOLE 100 MG TAB PO SCH (10:28)
[2017-09-12] MEDS: PANTOPRAZOLE 40 MG/10 ML VIAL IV SCH (10:28)
[2017-09-12] MEDS: cefTRIAXone 1GM/10ml IVPUSH 10 ML IV SCH (10:28)
[2017-09-12 12:53] VITALS: BP 97/70
== END 2017-09-12 16:00 | disposition home or self-care (01) ==
LOC: ER 20:46 → TELE 20:47 → TELE-WESTW 09-11 06:15
PROVIDERS: ADMIT Nurse Practitioner Family; ATTEND Internal Medicine
PROC: 30233N1 Transfusion of Nonautologous Red Blood Cells into Peripheral Vein, Percutaneous Approach (ICD-10-PCS; principal; 2017-09-11)
DX: K80.20 Calculus of gallbladder without cholecystitis without obstruction (principal); N17.9 Acute kidney failure, unspecified; E44.0 Moderate protein-calorie malnutrition; B20 Human immunodeficiency virus [HIV] disease; N18.3 Chronic kidney disease, stage 3 (moderate); D64.9 Anemia, unspecified; R59.0 Localized enlarged lymph nodes; E86.0 Dehydration; E87.1 Hypo-osmolality and hyponatremia; J98.11 Atelectasis; N28.1 Cyst of kidney, acquired; N39.0 Urinary tract infection, site not specified; N40.0 Benign prostatic hyperplasia without lower urinary tract symptoms; Z68.20 Body mass index [BMI] 20.0-20.9, adult
CPT/HCPCS: 36415; 71045; 74176; 80048; 80053; 81001; 82150; 83690; 85007; 85014; 85018; 85025; 85027; 85610; 85730; 86850; 86900; 86901; 86920; 87081; 87086; 96361; 96374; 96375; C9113; J2405; J3490

== ENCOUNTER 2020-03-04 17:29 | Emergency (ER) | payer MEDICARE, MEDICAID ==
[~2020-03-04] VITALS: Ht 167.6 cm; Wt 82.1 kg
[~2020-03-04 17:29] MED LIST changes: +AZIT250T9 PO; +CLAR1TAB21 PO; -ELVI1TAB4 PO; +ELVI1TAB5 PO; +PANT40T PO
[2020-03-04] MEDS ORDERED: SODIUM CHLORIDE 0.9% 1,000 ML IVB ONE (17:43)
[2020-03-04] MEDS ORDERED: ONDANSETRON HCL 4 MG/2 ML VIAL IV ONE (17:45)
[2020-03-04 18:09] LABS: Basophils # (auto) 0 10 ^3/uL (0-0.2); Basophils % (auto) 0.5 % (0.0-2.0); Eosinophils # (auto) 0.3 10 ^3/uL (0-0.8); Eosinophils % (auto) 3.8 % (0.0-7.0); Hematocrit 49.4 % (41.0-53.0); Hemoglobin 16.6 g/dL (13.5-17.5); Lymphocytes # (auto) 2.9 10 ^3/uL (0.4-5.4); Mean Corpuscular Hemoglobin 32.6 pg (28.0-32.0); Mean Corpuscular Hgb Conc. 33.5 g/dL (32.0-36.0); Mean Corpuscular Volume 97.2 fL (80.0-100.0); Neutrophils # (auto) 3.7 10 ^3/uL (1.6-8.6); Neutrophils % (auto) 46.7 % (37.0-80.0); Nucleated Red Blood Cells % 0.2 %; Platelet Count (auto) 178 10^3/uL (140-450); Red Blood Cells 5.09 10^6/uL (4.5-5.90); Red Cell Distribution Width 13.3 % (11.8-14.3)
[2020-03-04 18:28] LABS: Albumin 3.7 g/dL (3.4-5.0); Calcium 9.1 mg/dL (8.5-10.1); INR 0.97 (0.9-1.15); Magnesium 2.3 mg/dL (1.6-2.6); Partial Thromboplastin Time 25.6 sec (23.0-31.2); Potassium 3.5 mmol/L (3.5-5.1)
[2020-03-04 18:30] LABS: Bilirubin, Total 0.4 mg/dL (0.2-1.0); Total Protein 7.9 g/dL (6.4-8.2)
[2020-03-04 21:00] VITALS: BP 140/83
[2020-03-04 21:13] LABS: Urine Bacteria NONE SEEN /hpf (None Seen); Urine Blood Negative /uL (Negative); Urine Specific Gravity 1.015 (1.001-1.035); Urine WBC <1 /hpf (0 - 3)
== END 2020-03-04 21:58 | disposition home or self-care (01) ==
LOC: ER 17:29
DX: K29.70 Gastritis, unspecified, without bleeding (principal); Z86.2 Personal history of diseases of the blood and blood-forming organs and certain disorders involving the immune mechanism; Z90.89 Acquired absence of other organs; Z79.899 Other long term (current) drug therapy
CPT/HCPCS: 36415; 71045; 74176; 80053; 81001; 82150; 83690; 83735; 84484; 85025; 85610; 85730; 96361; 96374; 99285; J2405; J7030

== ENCOUNTER 2022-09-02 16:53 | Emergency (ER) | payer MEDICARE, MEDICAID ==
[~2022-09-02] VITALS: Ht 170.2 cm; Wt 8.0 kg
[2022-09-02 18:45] LABS: Basophils # (auto) 0 10 ^3/uL (0-0.2); Basophils % (auto) 0.4 % (0.0-2.0); Eosinophils # (auto) 0.5 10 ^3/uL (0-0.8); Eosinophils % (auto) 9.4 % (0.0-7.0); Hematocrit 48.7 % (41.0-53.0); Hemoglobin 16.6 g/dL (13.5-17.5); Lymphocytes # (auto) 0.9 10 ^3/uL (0.4-5.4); Lymphocytes % (auto) 18.1 % (10.0-50.0); Mean Corpuscular Hemoglobin 32.4 pg (28.0-32.0); Mean Corpuscular Volume 95.1 fL (80.0-100.0); Monocytes # (auto) 0.5 10 ^3/uL (0-1.3); Monocytes % (auto) 9.3 % (0.0-12.0); Neutrophils # (auto) 3.3 10 ^3/uL (1.6-8.6); Neutrophils % (auto) 62.8 % (37.0-80.0); Nucleated Red Blood Cells % 0.4 %; Red Blood Cells 5.12 10^6/uL (4.5-5.90); Red Cell Distribution Width 13.3 % (11.8-14.3); White Blood Cell 5.2 10^3/uL (4.4-10.8)
[2022-09-02 19:06] LABS: Potassium 3.8 mmol/L (3.5-5.1)
[2022-09-02 19:10] LABS: Urine Bacteria NONE SEEN /hpf (None Seen); Urine Blood Negative /uL (Negative); Urine Mucus FEW (None Seen); Urine Specific Gravity 1.024 (1.001-1.035); Urine WBC 29 /hpf (0 - 3)
[2022-09-02 19:13] LABS: Albumin 3.4 g/dL (3.4-5.0); Bilirubin, Total 0.7 mg/dL (0.2-1.0); Calcium 8.5 mg/dL (8.5-10.1); Total Protein 7.2 g/dL (6.4-8.2)
[2022-09-02] MEDS ORDERED: CIPR-173 PO ×3 (20:27→20:30)
[2022-09-02 21:10] VITALS: BP 157/112
== END 2022-09-02 21:16 | disposition home or self-care (01) ==
LOC: ER 16:56
DX: N39.0 Urinary tract infection, site not specified (principal); R07.89 Other chest pain; Z86.2 Personal history of diseases of the blood and blood-forming organs and certain disorders involving the immune mechanism; Z90.49 Acquired absence of other specified parts of digestive tract; Z79.2 Long term (current) use of antibiotics; Z79.899 Other long term (current) drug therapy
CPT/HCPCS: 36415; 71046; 74176; 80053; 81001; 85025